=== PATIENT | female | born 1985 | race Hispanic/Latino ===

== ENCOUNTER → 2021-07-20 | Day surgery (SDC) | payer BC ==
[2021-07-16 15:08] LABS: ANION GAP 13.1 mmol/L (8-16); CALCIUM 8.8 mg/dL (8.4-10.2); CREATININE, SERUM 0.79 mg/dL (0.57-1.11); POTASSIUM 4.1 mmol/L (3.5-5.1)
[~2021-07-20] MED LIST: BUPIVACAINE HCL 0.5% INJ 30 ML VIAL INJ ONE; BUPROPION XL150 MG PO; FENTANYL CITRATE/PF 100MCG/2 ML INJ ONE; HUMIRA40 MG/0.8 INJ; LOSARTAN POTASS25 MG PO; MIDAZOLAM HCL 2 MG/2 ML VIAL ONE; MUPIROCIN 2% OINT 22 GM TUBE ONE; SODIUM CHLORIDE 0.9% 50ML 100 ML ONE; SPIRONOLACTONE25 MG PO
[2021-07-20 11:20] VITALS: BP 119/78
== END | disposition home or self-care (01) ==
LOC: OR 06:37
PROVIDERS: ATTEND Podiatrist Foot & Ankle Surgery
DX: S96.011A Strain of muscle and tendon of long flexor muscle of toe at ankle and foot level, right foot, initial encounter (principal); I10 Essential (primary) hypertension; X58.XXXA Exposure to other specified factors, initial encounter; Z01.810 Encounter for preprocedural cardiovascular examination; Z01.812 Encounter for preprocedural laboratory examination; Z20.822 Contact with and (suspected) exposure to COVID-19; Z68.42 Body mass index [BMI] 45.0-49.9, adult
CPT/HCPCS: 28200; 36415; 76000; 80048; 81025; 93005; J0690; J2250; J3010; U0002